=== PATIENT | female | born 1970 ===

== ENCOUNTER 2019-08-22 20:15 | Emergency (ER) | payer OTHER ==
[~2019-08-22] VITALS: Ht 170.2 cm; Wt 59.1 kg
--- NOTE | 2019-08-22 20:40 | NUR ---
Pt states she consumed "the whole bottle of Benadryl". "I don't know why my son called 911, I wasn't trying to kill myself, I just wanted to sleep". Pt states she's had a bad day starting from 08/19 when "the david I've been with for the past 26 years is leaving me and going to snf".
--- NOTE | 2019-08-22 20:43 | NUR ---
POISON CONTROL RECOMMENDATION: PER [place], PHARMACIST, SKIP CHARCOAL INTERVENTION AT THIS TIME. TX GEARED FOR SUPPORTIVE MEASURES. ASSESS FOR EXPECTED LETHARGY AND POSSIBLE SEIZURE ACTIVITY. IF ANY SEIZURES OR AGITATION OCCURS, RECOMMENDATION IS FOR ATIVAN. BASELINE EKG FOR POSSIBLE QRS COMPLEX CHANGES. LABS: TYLENOL ASPIRIN LEVEL CMP ETOH OBSERVATION TIME: 6 HOURS FOR ONSET OF SYMPTOMS TRE MANDUJANO NOTIFIED
[2019-08-22 20:50] LABS: BASOPHILS # (AUTO) 0.1 X10'3 (0-0.2); BASOPHILS % (AUTO) 0.9 % (0-1); EOSINOPHILS # (AUTO) 0.2 X10'3 (0-0.9); EOSINOPHILS % (AUTO) 2.6 % (0-6); HEMATOCRIT 37.6 % (35.0-45.0); HEMOGLOBIN 12.6 g/dl (12.0-16.0); LYMPHOCYTES # (AUTO) 2.3 X10'3 (1.1-4.8); LYMPHOCYTES % (AUTO) 35.9 % (21-51); MEAN CORPUSCULAR HEMOGLOBIN 29.3 PG (27.0-31.0); MEAN CORPUSCULAR HGB CONC 33.5 g/dL (33.0-36.5); MEAN CORPUSCULAR VOLUME 87.3 FL (78-98); MEAN PLATELET VOLUME 8.3 FL (7.4-10.4); MONOCYTES # (AUTO) 0.6 X10'3 (0-0.9); MONOCYTES % (AUTO) 8.9 % (2-12); NEUTROPHILS # (AUTO) 3.3 X10'3 (1.8-7.7); NEUTROPHILS % (AUTO) 51.7 % (42-75); PLATELET COUNT 342 X10'3 (140-440); RED BLOOD COUNT 4.31 X10'6 (4.20-5.60); RED CELL DISTRIBUTION WIDTH 17.1 % (11.5-14.5); WHITE BLOOD COUNT 6.4 X10'3 (4.5-11.0)
--- NOTE | 2019-08-22 20:50 | NUR ---
Pt assisted to bedside commode; no urine collected at this time. Pt updated plan of care. Pending MD evaluation.
[2019-08-22 20:51] LABS: ALANINE AMINOTRANSFERASE 18 U/L (12-78); ALBUMIN 3.5 G/DL (3.4-5.0); ALKALINE PHOSPHATASE 83 IU/L (46-116); ANION GAP 9 (8-16); ASPARTATE AMINO TRANSFERASE 14 U/L (10-37); BILIRUBIN,TOTAL 0.2 MG/DL (0.1-1.0); BLOOD UREA NITROGEN 11 MG/DL (7-18); BUN/CREATININE RATIO 13.1 (6.6-38.0); CALCIUM 7.9 MG/DL (8.5-10.1); CHLORIDE 109 MMOL/L (99-107); CREATININE 0.84 MG/DL (0.40-0.90); GLUCOSE 116 MG/DL (70-104); POTASSIUM 4.2 MMOL/L (3.5-5.1); SODIUM 145 MMOL/L (135-145); TOTAL PROTEIN 7.1 G/DL (6.4-8.2); eGFR 73 ML/MIN
[2019-08-22] MEDS ORDERED: normal saline 1000ML IV soln IVB ONE ×2 (20:55→22:45)
[2019-08-22 20:56] LABS: ACETAMINOPHEN < 2.0 UG/ML (10-30)
[2019-08-22 21:01] LABS: ETHANOL 0.057 GM/DL (0.0-0.010)
[2019-08-22] MEDS ORDERED: ziprasidone 20mg capsule PO STA (21:24)
[2019-08-22] MEDS ORDERED: LORazepam 2 mg/ml vial IV ONE ×2 (21:25→22:45)
[2019-08-22] MEDS ORDERED: ZIPR80CA2 PO (21:26)
[2019-08-22] MEDS ORDERED: LORA2TAB96 PO (21:27)
--- NOTE | 2019-08-22 21:30 | NUR ---
TALKED TO PT'S 28 YEAR OLD DAUGHTER ON THE PHONE AFTER PT OKAYED. DAUGHTER STATES THAT SHE IS TRYING TO FIND A FLIGHT TO FLY IN TO [place] FROM [facility] TOMORROW/FRIDAY TO LOOK AFTER HER MOM AND 13 YEAR OLD BROTHER AT HOME.
[2019-08-22 22:38] LABS: URINE HCG NEGATIVE (NEG)
[2019-08-22 22:44] LABS: CLARITY,URINE SLIGHTLY CLOUDY (Clear); COLOR,URINE YELLOW (Yellow); GLUCOSE, URINE NEGATIVE (Neg); KETONES,URINE NEGATIVE (Neg); LEUKOCYTE ESTERASE ,URINE NEGATIVE (Neg); NITRITES, URINE NEGATIVE (Neg); OCCULT BLOOD,URINE LARGE (Neg); PH,URINE 8.5 (4.8-8.0); PROTEIN,URINE NEGATIVE (Neg); UROBILINOGEN,URINE 0.2 E.U/dL (0.2-1.0)
[2019-08-22 22:52] LABS: UA COLLECTION TYPE CLN CATCH MIDSTREAM
[2019-08-22 22:54] LABS: BACTERIA,URINE FEW /HPF (Neg); SQUAMOUS EPITHELIAL CELL,UR FEW /LPF (FEW); WBC,URINE NONE SEEN /HPF (0-4)
[2019-08-22 23:01] LABS: URINE AMPHETAMINE SCREEN NEGATIVE (Neg); URINE BARBITUATE SCREEN NEGATIVE (Neg); URINE BENZODIAZEPINES SCREEN NEGATIVE (Neg); URINE CANNABINOID SCREEN NEGATIVE (Neg); URINE COCAINE SCREEN NEGATIVE (Neg); URINE METHADONE SCREEN NEGATIVE (Neg); URINE OPIATE SCREEN NEGATIVE (Neg); URINE PHENCYCLIDINE SCREEN NEGATIVE (Neg)
--- NOTE | 2019-08-22 23:49 | NUR ---
Sabra bro in ED - 08/22/19 at 2351 by COURTNEY Treatments: Elevate electrolytes, administer 2g IV Mag. mag > 2 k > 4.0 lavern > 9
--- NOTE | 2019-08-22 23:51 | NUR ---
Spoke with Posion Control (Lauren) about re-eval for pt. Treatments: Elevate electrolytes to prevent cardiac dysrhythmias, administer 2g IV Mag and IV banana bag due to chronic ETOH hx, draw mag level. Optimize electrolytes to the following: mag > 2, k > 4.0, and calcium > 9
--- NOTE | 2019-08-22 23:57 | NUR ---
Dr. Ruiz made aware of posion control recommendations.
[2019-08-23] MEDS ORDERED: thiamine 100mg tablet PO ONE
[2019-08-23] MEDS ORDERED: magnesium 2GM in 50ml NS 50 ML IV ONE
--- NOTE | 2019-08-23 04:21 | NUR ---
Assumed care of patient. She is wearing green scrubs, and after going to the restroom, the patient was showed to bed 26 where she will sleep.
--- NOTE | 2019-08-23 05:26 | NUR ---
The patient is laying in bed awake on her back with her eyes open. No s/s of distress.
--- NOTE | 2019-08-23 07:00 | NUR ---
Pt is sitting up in bed. She is anxious and states that she needs to get out of here because her 12 year old son is at home alone. Pt appears to be minimizing the fact that she took a bottle of benadryl and states that she was not trying to kill herself. She states that she was trying to sleep because she has been up since . She states that her left her on and took all of their money out of the bank. She reports that he is going to group home today and she has to sell her house and that she has to be out of her house in 45 days. Her daughter is flying in from [place], Pt states that her daughter is a good support for her. No distress observed.
[2019-08-23] MEDS ORDERED: LORazepam 1 MG tablet PO PRN (07:50)
[2019-08-23] MEDS ORDERED: ziprasidone 20mg capsule PO SCH (08:00)
[2019-08-23] MEDS ORDERED: sertraline 50mg tablet PO ONE (08:00)
--- NOTE | 2019-08-23 09:06 | NUR ---
Pt is sitting in bed. She has been seen talking on the phone intermittently. SC was at bedside and Pt will not be held as Mary from [facility] states that she has a good plan for after discharge. Pt took her medications without incident and has been pleasant and cooperative with care. No distress noted. Will continue to monitor.
--- NOTE | 2019-08-23 09:40 | NUR ---
Pt discharged at 0935 ambulating self with all personal items in possession per inventory sheet accompanied by this RN to ER [facility] to await taxi. No distress observed. Discharge information was explained and discussed with patient. Questions were answered and Pt verbalized understanding of Plan. She is following up with Dr. Link today at 1045. Denies SS/I or intent
[2019-08-23 09:49] VITALS: BP 128/76
== END 2019-08-23 09:35 | disposition home or self-care (01) ==
LOC: ER 20:16
DX: T45.0X1A Poisoning by antiallergic and antiemetic drugs, accidental (unintentional), initial encounter (principal); R79.1 Abnormal coagulation profile; Z79.899 Other long term (current) drug therapy; Y92.89 Other specified places as the place of occurrence of the external cause
CPT/HCPCS: 36415; 80053; 80305; 80320; 80329; 81001; 81025; 84484; 85025; 85610; 93005; 96365; 96375; 96376; 99284; J2060; J3475; J7030; 99285